=== PATIENT | male | born 1980 | race Caucasian/White ===

== ENCOUNTER 2021-07-22 07:24 | Day surgery (SDC) | payer SELFPAY ==
[~2021-07-22 07:24] MED LIST: Bacitracin Oint 28.35 GM Tube ONE; Lidocaine 1% with EPINEPHrine 1:100,000 50 ML MDV ONE; Lidocaine/Prilocaine 2.5-2.5% Crm 5 GM Tube ONE; Midazolam 1 MG/ML 2 ML SDV ONE; Mineral Oil 10 ML Bottle ONE; Propofol 200 MG/20 ML SDV ONE; fentaNYL 100 MCG/2 ML SDV ONE
[2021-07-22] MEDS ORDERED: Sodium Chloride 0.9% 1,000 ML IV SCH (08:30)
[2021-07-22] MEDS ORDERED: Midazolam 1 MG/ML 2 ML SDV ONE (09:17)
[2021-07-22] MEDS ORDERED: Lidocaine 1% with EPINEPHrine 1:100,000 50 ML MDV SUBCUT ONE (09:50)
[2021-07-22] MEDS ORDERED: Bacitracin Oint 28.35 GM Tube TOP ONE (09:50)
[2021-07-22] MEDS ORDERED: Propofol 200 MG/20 ML SDV ONE (10:01)
[2021-07-22] MEDS ORDERED: Ketorolac 30 MG/ML SDV ONE (10:04)
[2021-07-22] MEDS ORDERED: Acetaminophen/oxyCODONE 325-5 MG Tab PO PRN (11:00)
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
== END 2021-07-22 11:40 | disposition home or self-care (01) ==
LOC: JP.SDS 07:24
PROVIDERS: ATTEND Surgery
DX: T24.202A Burn of second degree of unspecified site of left lower limb, except ankle and foot, initial encounter (principal); I10 Essential (primary) hypertension; E66.9 Obesity, unspecified; Z68.38 Body mass index [BMI] 38.0-38.9, adult
CPT/HCPCS: A9270-GY; J1885; J2250; J2704; J3010; J7030; U0002